=== PATIENT | female | born 1970 | race Two or more races ===

== ENCOUNTER 2018-07-31 06:17 | Emergency (ER) | payer OTHER ==
[~2018-07-31] VITALS: Ht 157.5 cm; Wt 95.3 kg
[~2018-07-31 06:17] MED LIST: VASOTEC10 MG NGT
[2018-07-31] MEDS ORDERED: AVALIDE 300-121 EACH (06:26)
== END 2018-07-31 13:10 | disposition home or self-care (01) ==
LOC: ER 06:17
DX: I16.0 Hypertensive urgency (principal); I10 Essential (primary) hypertension

== ENCOUNTER 2019-02-05 03:30 | Emergency (ER) | payer OTHER ==
[~2019-02-05] VITALS: Ht 157.5 cm; Wt 95.3 kg
[~2019-02-05 03:30] MED LIST changes: +AVALIDE 300-121 EACH
== END 2019-02-05 09:38 | disposition home or self-care (01) ==
LOC: ER 03:30 → CPU-OBS 03:32 → ER 09:38
DX: R07.89 Other chest pain (principal)
CPT/HCPCS: G0378; G0379; 93005

== ENCOUNTER 2019-06-27 21:05 | Emergency (ER) | payer OTHER ==
[~2019-06-27] VITALS: Ht 160 cm; Wt 95.3 kg
[2019-06-27] MEDS ORDERED: NORFLEX100MG PO (22:03)
[2019-06-27] MEDS ORDERED: DICLOFENAC SODI75 MG PO (22:03)
== END 2019-06-27 22:58 | disposition home or self-care (01) ==
LOC: ER 21:05
DX: S93.491A Sprain of other ligament of right ankle, initial encounter (principal); S81.012A Laceration without foreign body, left knee, initial encounter; S81.011A Laceration without foreign body, right knee, initial encounter; M54.2 Cervicalgia; W01.198A Fall on same level from slipping, tripping and stumbling with subsequent striking against other object, initial encounter; Y93.89 Activity, other specified; Y92.89 Other specified places as the place of occurrence of the external cause; Y99.8 Other external cause status

== ENCOUNTER 2019-07-01 18:56 | Emergency (ER) | payer OTHER ==
[~2019-07-01] VITALS: Ht 157.5 cm; Wt 95.3 kg
[~2019-07-01 18:56] MED LIST changes: +DICLOFENAC SODI75 MG PO; +NORFLEX100MG PO
[2019-07-01] MEDS ORDERED: ULTRACET PO (23:17)
== END 2019-07-01 23:37 | disposition home or self-care (01) ==
LOC: ER 18:56
DX: S80.01XA Contusion of right knee, initial encounter (principal); W18.39XA Other fall on same level, initial encounter; Y93.89 Activity, other specified; Y92.89 Other specified places as the place of occurrence of the external cause; Y99.8 Other external cause status

== ENCOUNTER 2019-12-06 00:45 | Emergency (ER) | payer OTHER ==
[~2019-12-06] VITALS: Ht 152.4 cm; Wt 97.5 kg
[~2019-12-06 00:45] MED LIST changes: +ULTRACET PO
[2019-12-06] MEDS ORDERED: CLARITIN5 MG PO (01:01)
[2019-12-06] MEDS ORDERED: PEPCID40 MG PO (06:48)
[2019-12-06] MEDS ORDERED: ZOFRAN8 M1 PO (06:48)
== END 2019-12-06 07:25 | disposition home or self-care (01) ==
LOC: ER 00:45
DX: K21.9 Gastro-esophageal reflux disease without esophagitis (principal)

== ENCOUNTER 2020-02-25 09:15 | Emergency (ER) | payer OTHER ==
[~2020-02-25] VITALS: Ht 157.5 cm; Wt 95.3 kg
[~2020-02-25 09:15] MED LIST changes: +CLARITIN5 MG PO; +PEPCID40 MG PO; +ZOFRAN8 M1 PO
[2020-02-25] MEDS ORDERED: ORPHENADRINE C100 MG PO (13:25)
[2020-02-25] MEDS ORDERED: KETO10TA2 PO (13:25)
[2020-02-25] MEDS ORDERED: VISTARIL50 MG PO (13:25)
== END 2020-02-25 13:41 | disposition home or self-care (01) ==
LOC: ER 09:15
DX: R07.89 Other chest pain (principal); F06.4 Anxiety disorder due to known physiological condition; M94.0 Chondrocostal junction syndrome [Tietze]

== ENCOUNTER 2020-10-07 18:26 | Emergency (ER) | payer OTHER ==
[~2020-10-07] VITALS: Ht 160 cm; Wt 104.3 kg
[~2020-10-07 18:26] MED LIST changes: +KETO10TA2 PO; +ORPHENADRINE C100 MG PO; +VISTARIL50 MG PO
[2020-10-07] MEDS ORDERED: AVALIDE (18:41)
[2020-10-07] MEDS ORDERED: NORFLEX100MG PO (21:45)
[2020-10-07] MEDS ORDERED: MEDROLPACK PO (21:45)
[2020-10-07] MEDS ORDERED: KETO10TA2 PO (21:45)
== END 2020-10-07 22:00 | disposition home or self-care (01) ==
LOC: ER 18:26
DX: R07.89 Other chest pain (principal); M94.0 Chondrocostal junction syndrome [Tietze]; N39.0 Urinary tract infection, site not specified

== ENCOUNTER 2020-10-12 21:10 | Emergency (ER) | payer OTHER ==
[~2020-10-12] VITALS: Ht 154.9 cm; Wt 117.9 kg
[~2020-10-12 21:10] MED LIST changes: +AVALIDE; +MEDROLPACK PO
== END 2020-10-13 04:48 | disposition home or self-care (01) ==
LOC: ER 21:10
DX: K21.9 Gastro-esophageal reflux disease without esophagitis (principal); M94.0 Chondrocostal junction syndrome [Tietze]

== ENCOUNTER 2020-10-25 12:52 | Emergency (ER) | payer OTHER ==
[~2020-10-25] VITALS: Ht 160 cm; Wt 104.3 kg
== END 2020-10-25 16:50 | disposition home or self-care (01) ==
LOC: ER 12:52
DX: G43.909 Migraine, unspecified, not intractable, without status migrainosus (principal)

== ENCOUNTER 2020-12-11 19:05 | Emergency (ER) | payer OTHER ==
[~2020-12-11] VITALS: Ht 157.5 cm; Wt 95.3 kg
[2020-12-11] MEDS ORDERED: PEPCID AC20 MG PO (23:35)
[2020-12-11] MEDS ORDERED: BUTALBIT-ACETA1 EACH PO (23:35)
[2020-12-11] MEDS ORDERED: LEVSIN/SL0.125 MG SL (23:35)
== END 2020-12-12 01:39 | disposition home or self-care (01) ==
LOC: ER 19:05
DX: K29.70 Gastritis, unspecified, without bleeding (principal); R51.9 Headache, unspecified; Z03.818 Encounter for observation for suspected exposure to other biological agents ruled out; R10.9 Unspecified abdominal pain
CPT/HCPCS: 70460; Q9965

== ENCOUNTER 2021-02-03 07:13 | Day surgery (SDC) | payer OTHER ==
[~2021-02-03 07:13] MED LIST changes: +BUTALBIT-ACETA1 EACH PO; +LEVSIN/SL0.125 MG SL; +PEPCID AC20 MG PO; +RELAFEN DS1000 MG PO
[2021-02-03] MEDS ORDERED: PERCOCET 5-3251 EACH PO (12:13)
[2021-02-05] MEDS ORDERED: Z-TUSS AC 2 MG118 ML PO (03:50)
== END 2021-02-03 17:25 | disposition home or self-care (01) ==
LOC: CIR.AMB 07:13
PROVIDERS: ATTEND Surgery
DX: D34 Benign neoplasm of thyroid gland (principal); Z20.822 Contact with and (suspected) exposure to COVID-19

== ENCOUNTER → 2021-02-05 | Emergency (ER) | payer OTHER ==
[~2021-02-05] VITALS: Ht 152.4 cm; Wt 86.2 kg
[~2021-02-05] MED LIST changes: +PERCOCET 5-3251 EACH PO; +Z-TUSS AC 2 MG118 ML PO
== END | disposition home or self-care (01) ==
LOC: ER 00:17
DX: J04.0 Acute laryngitis (principal); E89.89 Other postprocedural endocrine and metabolic complications and disorders

== ENCOUNTER 2021-03-21 12:00 | Emergency (ER) | payer OTHER ==
[~2021-03-21] VITALS: Ht 160 cm; Wt 99.8 kg
[2021-03-21] MEDS ORDERED: NORVASC5 MG PO (12:15)
[2021-03-21] MEDS ORDERED: AVALIDE 300-121 EACH (12:15)
[2021-03-21] MEDS ORDERED: TOPAMAX25 MG PO (12:16)
[2021-03-21] MEDS ORDERED: ATROVENT HFA12.9 GM IH (12:16)
[2021-03-21] MEDS ORDERED: NURTEC ODT75 MG PO (12:16)
[2021-03-21] MEDS ORDERED: KETO10TA2 PO (12:17)
== END 2021-03-21 16:31 | disposition home or self-care (01) ==
LOC: ER 12:00
DX: M94.0 Chondrocostal junction syndrome [Tietze] (principal); E03.9 Hypothyroidism, unspecified; I10 Essential (primary) hypertension

== ENCOUNTER 2021-06-21 17:20 | Emergency (ER) | payer OTHER ==
[~2021-06-21] VITALS: Ht 157.5 cm; Wt 95.3 kg
[~2021-06-21 17:20] MED LIST changes: +ATROVENT HFA12.9 GM IH; +NORVASC5 MG PO; +NURTEC ODT75 MG PO; +TOPAMAX25 MG PO
[2021-06-21] MEDS ORDERED: BUTALBIT-ACETA1 EACH PO (20:40)
== END 2021-06-21 20:45 | disposition home or self-care (01) ==
LOC: ER 17:20
DX: R51.9 Headache, unspecified (principal); I10 Essential (primary) hypertension; R10.13 Epigastric pain